=== PATIENT | female | born 1980 | race Two or more races ===

== ENCOUNTER 2016-12-28 09:54 | Emergency (ER) | payer MEDICAID ==
[~2016-12-28] VITALS: Ht 167.6 cm; Wt 105.0 kg
[2016-12-28 12:41] LABS: BASOPHILS % 1.2 % (0.0-2.0); EOSINOPHILS % 2.4 % (0.0-5.0); HEMATOCRIT. 40.7 % (36.0-48.0); HEMOGLOBIN. 13.7 g/dL (12.0-16.0); LYMPHOCYTES % 56.7 % (20.0-50.0); MEAN PLATELET VOLUME 8.2 fl (7.4-10.4); MONOCYTES % 11.3 % (2.0-8.0); NEUTROPHILS % 28.4 % (40.0-76.0); PLATELET 206 x1000/uL (130-400); RED BLOOD CELL COUNT 4.43 mill/uL (4.2-5.4); RED CELL DISTRIBUTION WIDTH 14.2 % (11.6-14.6)
[2016-12-28 12:44] LABS: D-DIMER 0.55 mg/L FEU (<0.50); INR 1.2
[2016-12-28 12:49] LABS: CARBON DIOXIDE 24 mEq/L (21-32); CHLORIDE 106 mEq/L (98-107)
[2016-12-28 12:52] LABS: HCG SCREEN NEGATIVE; TROPONIN I < 0.02 ng/mL (0.00-0.04)
[2016-12-28 14:47] VITALS: BP 134/75
[2016-12-28] MEDS ORDERED: IOHEXOL-350 100 ML BOTTLE ONE (14:58)
== END 2016-12-28 14:58 | disposition home or self-care (01) ==
LOC: ER 09:54
DX: R07.9 Chest pain, unspecified (principal); R00.2 Palpitations; Z91.011 Allergy to milk products
CPT/HCPCS: 36415; 71010; 71275; 80053; 83880; 84484; 84703; 85025; 85379; 85610; 93005; 99285; Q9967